=== PATIENT | female | born 1960 ===

== ENCOUNTER 2019-05-05 05:25 | Day surgery (SDC) | payer OTHER | END 2019-05-05 10:40 | disposition home or self-care (01) | LOC: AMB-ENDOS 05:25 | DX: D12.0 Benign neoplasm of cecum (principal) ==

== ENCOUNTER 2020-06-07 06:35 | Day surgery (SDC) | payer OTHER | END 2020-06-07 10:00 | disposition home or self-care (01) | LOC: AMB-ENDOS 06:35 | PROVIDERS: ATTEND Surgery | DX: D12.0 Benign neoplasm of cecum (principal); K64.8 Other hemorrhoids; Z20.828 Contact with and (suspected) exposure to other viral communicable diseases ==